=== PATIENT | male | born 1990 | race Caucasian/White ===

== ENCOUNTER 2018-06-06 11:16 | Emergency (ER) | payer OTHER ==
[2018-06-06] MEDS: HYDROCODONE/APAP (5/325) TAB PO (12:49)
== END 2018-06-06 14:32 | disposition home or self-care (01) ==
LOC: FTE 11:16
DX: S09.90XA Unspecified injury of head, initial encounter (principal); R51 Headache; Y04.2XXA Assault by strike against or bumped into by another person, initial encounter
CPT/HCPCS: 70450; 70486; 72040; 99284-25